=== PATIENT | male | born 2000 | race African-American/Black ===

== ENCOUNTER 2019-11-27 08:17 | Emergency (ER) | payer MEDICAID ==
[~2019-11-27] VITALS: Ht 195.6 cm; Wt 72.6 kg
--- NOTE | 2019-11-27 08:20 | NUR ---
Dr Thomas at the bedside for MSE.
[2019-11-27] MEDS ORDERED: MORPHINE SULFATE 2 MG/1 ML DISP.SYRIN IV ONE (08:30)
[2019-11-27] MEDS ORDERED: ONDANSETRON 4 MG/2 ML VIAL IV ONE ×2 (08:30→09:30)
[2019-11-27] MEDS ORDERED: IV NORMAL SALINE 1000 ML BAG IV ONE ×3 (08:30→09:00)
[2019-11-27] MEDS ORDERED: ONDANSETRON 4 MG/2 ML VIAL ONE ×2 (08:35→09:21)
[2019-11-27] MEDS ORDERED: MORPHINE SULFATE 4 MG/1 ML DISP.SYRIN ONE ×2 (08:35→10:19)
[2019-11-27] MEDS ORDERED: CEFTRIAXONE 1 G in IV DEXTROSE 5% 50 ML IV ONE (09:00)
[2019-11-27] MEDS ORDERED: AZITHROMYCIN IV 500 MG in IV DEXTROSE 5% 250 ML IV ONE (09:00)
[2019-11-27 09:03] LABS: BASOPHILS # (AUTO) 0.1 K/uL (0.0-8.0); BASOPHILS % (AUTO) 0.4 % (0.0-2.0); EOSINOPHILS # (AUTO) 0.2 K/uL (0.0-0.7); EOSINOPHILS % (AUTO) 0.9 % (0.0-7.0); HEMATOCRIT 22.8 % (36.7-47.1); LYMPHOCYTES # (AUTO) 0.8 K/uL (20.0-40.0); LYMPHOCYTES % (AUTO) 2.9 % (20.5-51.5); MEAN CORPUSCULAR HEMOGLOBIN 25.2 uug (23.8-33.4); MEAN CORPUSCULAR HGB CONC 32 g/dL (32.5-36.3); MEAN CORPUSCULAR VOLUME 79.3 fL (73.0-96.2); MONOCYTES # (AUTO) 4.1 K/uL (2.0-10.0); MONOCYTES % (AUTO) 15.7 % (0.0-11.0); NEUTROPHILS # (AUTO) 20.7 K/uL (1.8-8.9); NEUTROPHILS % (AUTO) 80.1 % (38.5-71.5); PLATELET COUNT (AUTO) 259 K/uL (152-348); RED BLOOD CELL COUNT(AUTO) 2.88 MIL/uL (4.06-5.63); WHITE BLOOD COUNT (AUTO) 25.9 K/uL (3.6-10.2)
[2019-11-27 09:04] LABS: CARBON DIOXIDE 24 mmol/L (21-32); CHLORIDE 104 mmol/L (98-107); CREATININE 0.8 mg/dL (0.6-1.3); GLUCOSE 87 mg/dL (74-106); HEMOGLOBIN 7.3 g/dL (12.5-16.3); POTASSIUM 4.1 mmol/L (3.5-5.1); UREA NITROGEN, BLOOD 8 mg/dL (7-18)
[2019-11-27] MEDS ORDERED: AZITHROMYCIN 500MG/ D5W 250ML IVPB **ER PYXIS ONLY IV ONE (09:07)
[2019-11-27] MEDS ORDERED: CEFTRIAXONE 1 G VIAL ONE (09:07)
[2019-11-27 09:09] LABS: ALANINE AMINOTRANSFERASE 34 U/L (16-63); ALKALINE PHOSPHATASE 166 U/L (50-136); ASPARTATE AMINOTRANSFERASE 50 U/L (15-37); BILIRUBIN,DIRECT 0.4 mg/dL (0.0-0.2); BILIRUBIN,TOTAL 2.4 mg/dL (0.2-1.0); TOTAL PROTEIN, SERUM 9.4 g/dL (6.4-8.2)
[2019-11-27 09:19] LABS: EOSINOPHILS % (MANUAL) 1 % (0-8); LYMPHOCYTES % (MANUAL) 3 % (20-40); MONOCYTES % (MANUAL) 15 % (2-10); NEUTROPHILS % (MANUAL) 81 % (42-75)
--- NOTE | 2019-11-27 09:57 | NUR ---
Spoke to case manger for Pt's possible transfer to [facility], clinicals provided. Awaiting call back.
[2019-11-27] MEDS ORDERED: ALBUTEROL SULFATE 2.5 MG/3 ML NEBU NEB ONE (10:00)
[2019-11-27] MEDS ORDERED: ALBUTEROL SULFATE 2.5 MG/3 ML NEBU ONE (10:02)
[2019-11-27] MEDS ORDERED: MORPHINE SULFATE 4 MG/1 ML DISP.SYRIN IV ONE (10:30)
--- NOTE | 2019-11-27 11:14 | NUR ---
Patient is resting comfortably in bed with eyes closed, NAD noted.
--- NOTE | 2019-11-27 12:11 | NUR ---
Recieved a call w/ transfer info, Pt will be transfered to [facility] with BLS transfer.
--- NOTE | 2019-11-27 12:42 | NUR ---
Patient is resting comfortably in bed with eyes closed, NAD noted.
--- NOTE | 2019-11-27 12:55 | NUR ---
Lunch tray provided for pt. Pt states not feeling hungry and didn't eat, but drank water/juice.
--- NOTE | 2019-11-27 13:30 | NUR ---
Pt is aware of transfer and signed consent.
--- NOTE | 2019-11-27 14:54 | NUR ---
Patient is resting comfortably in bed with eyes closed, NAD noted.
--- NOTE | 2019-11-27 15:01 | NUR ---
Report given to Larry TOBAR, from [facility]. ETA for miner pick at [phone].
[2019-11-27] MEDS ORDERED: ACETAMINOPHEN ES 500 MG TABLET PO ONE (16:00)
[2019-11-27] MEDS ORDERED: ACETAMINOPHEN ES 500 MG TABLET ONE (16:00)
--- NOTE | 2019-11-27 16:00 | NUR ---
Recheck pt's temp, increase to 100.2, DR Thomas made aware. Order recieved.
--- NOTE | 2019-11-27 16:46 | NUR ---
Report given to oceanographer geological. Pt left ER in stable condtion, all belongings sent w/ pt.
== END 2019-11-27 16:49 | disposition short-term general hospital (02) ==
LOC: ER 08:17
DX: A41.9 Sepsis, unspecified organism (principal); J18.9 Pneumonia, unspecified organism; D57.00 Hb-SS disease with crisis, unspecified
CPT/HCPCS: 36415; 71045; 80048; 80076; 82962; 83605; 84484; 85007; 85025; 85730; 87040 ×2; 87400; 93005; 94640; 96365; 96366; 96368; 96375; 96376; 99291; J0456; J0696; J2270 ×2; J2405 ×2; 70030-TC; A4663; A9150; J7030

== ENCOUNTER 2020-01-28 02:10 | Emergency (ER) | payer BC, MEDICAID ==
[~2020-01-28] VITALS: Ht 193 cm; Wt 86.2 kg
[2020-01-28] MEDS ORDERED: HYDROMORPHONE 1 MG/1 ML DISP.SYRIN IV ONE ×3 (02:30→05:00)
[2020-01-28] MEDS ORDERED: IV NORMAL SALINE 1000 ML BAG IV ONE (02:30)
[2020-01-28 03:02] LABS: BASOPHILS # (AUTO) 0.1 K/uL (0.0-8.0); BASOPHILS % (AUTO) 0.6 % (0.0-2.0); EOSINOPHILS # (AUTO) 0.1 K/uL (0.0-0.7); EOSINOPHILS % (AUTO) 0.5 % (0.0-7.0); HEMATOCRIT 24.2 % (36.7-47.1); HEMOGLOBIN 7.6 g/dL (12.5-16.3); LYMPHOCYTES # (AUTO) 3.9 K/uL (20.0-40.0); LYMPHOCYTES % (AUTO) 17.3 % (20.5-51.5); MEAN CORPUSCULAR HEMOGLOBIN 28.3 uug (23.8-33.4); MEAN CORPUSCULAR HGB CONC 31 g/dL (32.5-36.3); MEAN CORPUSCULAR VOLUME 90.1 fL (73.0-96.2); MONOCYTES # (AUTO) 0.7 K/uL (2.0-10.0); MONOCYTES % (AUTO) 3.1 % (0.0-11.0); NEUTROPHILS # (AUTO) 17.4 K/uL (1.8-8.9); NEUTROPHILS % (AUTO) 78.5 % (38.5-71.5); PLATELET COUNT (AUTO) 159 K/uL (152-348); RED BLOOD CELL COUNT(AUTO) 2.69 MIL/uL (4.06-5.63)
[2020-01-28 03:02] LABS: CREATININE 0.9 mg/dL (0.6-1.3); POTASSIUM 4.1 mmol/L (3.5-5.1)
[2020-01-28] MEDS ORDERED: HYDROMORPHONE 1 MG/1 ML DISP.SYRIN ONE (03:02)
[2020-01-28 03:16] LABS: BILIRUBIN,TOTAL 7.2 mg/dL (0.2-1.0); TOTAL PROTEIN, SERUM 7.6 g/dL (6.4-8.2)
[2020-01-28] MEDS ORDERED: PIPERACILLIN SODIUM/TAZOBACTAM 3.375 G in IV DEXTROSE 5% 50 ML IV ONE (03:30)
--- NOTE | 2020-01-28 03:37 | NUR ---
spoke with sunday from [facility] to give clinicals
[2020-01-28] MEDS ORDERED: HYDROMORPHONE 2 MG/1 ML DISP.SYRIN ONE ×2 (03:41→05:08)
[2020-01-28] MEDS ORDERED: PIPERACILLIN/TAZOBACTAM/D5W 50 ML IV ONE (03:42)
[2020-01-28] MEDS ORDERED: IV NS 1000 ML 1,000 ML IV ONE (03:45)
[2020-01-28 03:53] LABS: BAND % (MANUAL) 6 % (0-10); LYMPHOCYTES % (MANUAL) 17 % (20-40); METAMYELOCYTES % 3 % (0-1); MONOCYTES % (MANUAL) 5 % (2-10); MYELOCYTES % 1 % (0-0); NEUTROPHILS % (MANUAL) 64 % (42-75)
[2020-01-28 04:06] LABS: WHITE BLOOD COUNT (AUTO) 16.1 K/uL (3.6-10.2)
[2020-01-28 05:09] LABS: *BLOOD, URINE 2+ (NEGATIVE); *CLARITY,URINE CLEAR (CLEAR); *COLOR,URINE DARK YELLOW (YELLOW); *KETONES,URINE NEGATIVE (NEGATIVE); *UROBILINOGEN,URINE >=8.0 E.U./dl (NORMAL); LEUKOCYTE ESTERASE ,URINE NEGATIVE (NEGATIVE); NITRITE, URINE NEGATIVE (NEGATIVE); UGLUCOSE NEGATIVE (NEGATIVE)
--- NOTE | 2020-01-28 05:09 | NUR ---
Dr. Haskins on the phone with manuelito CACERES
--- NOTE | 2020-01-28 05:13 | NUR ---
US at bedside
[2020-01-28 05:21] LABS: *BILIRUBIN,URIN 1+ (NEGATIVE)
[2020-01-28 05:31] LABS: BACTERIA,URINE NONE SEEN /HPF (NONE SEEN); SQUAMOUS EPITHELIAL CELL,UR FEW /HPF (NONE SEEN)
--- NOTE | 2020-01-28 05:38 | NUR ---
Patient has been accepted to [facility] under Dr. Bartlett
--- NOTE | 2020-01-28 06:21 | NUR ---
Gave report to Triny from [facility]
--- NOTE | 2020-01-28 07:00 | NUR ---
received hand off and SBAR fr outgoing RN (Melody) Pt sleeping at supine Sinus tach at 122bpm Pt is for transfer to [facility] Rm [id number]- [id number] Dx Sickle Cell crisis +Sepsis Telemetry Receiving: Dr Bartlett Report given by awake overnight counselor to Steffany [phone] ETA: [id number]
--- NOTE | 2020-01-28 08:09 | NUR ---
ambulance arrived for pickup
== END 2020-01-28 08:12 | disposition short-term general hospital (02) ==
LOC: ER 02:12
DX: D57.00 Hb-SS disease with crisis, unspecified (principal); R94.5 Abnormal results of liver function studies; E87.2 Acidosis; Z59.0 Homelessness; R00.0 Tachycardia, unspecified; R16.0 Hepatomegaly, not elsewhere classified; I51.7 Cardiomegaly
CPT/HCPCS: 36415; 71045; 76705; 80048; 80076; 81000; 81001; 83605 ×2; 83690; 83880; 84484; 85007; 85025; 85730; 87040 ×2; 93005; 96361; 96374; 96375; 96376; 99285; J1170 ×3; J2543; 70030-TC; A4663; J7030